=== PATIENT | female | born 1965 | race American Indian/Alaskan Native ===

== ENCOUNTER 2017-03-16 19:13 | Emergency (ER) | payer SELFPAY ==
[2017-03-16 19:47] VITALS: BP 129/85
[2017-03-16 20:10] LABS: Hematocrit 40.7 % (30.3-42.9); Hemoglobin 13.1 gm/dl (10.1-14.3); Mean Corpuscular HGB Conc 32 % (30-34); Mean Corpuscular Hemoglobin 27 pg (28-32); Mean Corpuscular Volume 83 fl (79-97); Platelet Count 265 K/mm3 (140-440); Red Blood Count 4.89 M/mm3 (3.65-5.03); White Blood Count 7.5 K/mm3 (4.5-11.0)
[2017-03-16 20:27] LABS: Anion Gap 17 mmol/L; BUN/Creatinine Ratio 26.66; Blood Urea Nitrogen 16 mg/dL (7-17); Calcium 9.1 mg/dL (8.4-10.2); Carbon Dioxide 26 mmol/L (22-30); Chloride 101.8 mmol/L (98-107); Glucose 103 mg/dL (65-100); Potassium 4.3 mmol/L (3.6-5.0); Sodium 140 mmol/L (137-145)
--- NOTE | 2017-03-16 20:28 | Cat Scan Report ---
FINAL REPORT PROCEDURE: CT HEAD/BRAIN WO CON TECHNIQUE: Computerized tomography of the head was performed without contrast material. HISTORY: Headache COMPARISON: No prior studies are available for comparison. FINDINGS: Skull and scalp: Normal. Paranasal sinuses: Normal. Ventricles and subarachnoid spaces: Normal. Cerebrum: No evidence of hemorrhage, acute infarction or mass . Cerebellum and brainstem: No evidence of hemorrhage, acute infarction or mass. Vasculature: Normal. Comments: None. IMPRESSION: Normal Examination
--- NOTE | 2017-03-21 16:50 | ED Elopement Review ---
ED Pt Elopement review - Results review Lab results: Laboratory Tests 03/16/17 03/16/17 19:58 19:58 WBC 7.5 RBC 4.89 Hgb 13.1 Hct 40.7 MCV 83 MCH 27 L MCHC 32 RDW 15.0 Plt Count 265 Sodium 140 Potassium 4.3 Chloride 101.8 Carbon Dioxide 26 Anion Gap 17 BUN 16 Creatinine 0.6 L Estimated GFR > 60 BUN/Creatinine Ratio 26.66 Glucose 103 H Calcium 9.1 - Call Back decision Pt Call Back Decision: No action required
== END 2017-03-16 22:07 | disposition left against medical advice (07) ==
LOC: ED 19:13
DX: R51 Headache (principal); Z53.21 Procedure and treatment not carried out due to patient leaving prior to being seen by health care provider
CPT/HCPCS: 36415; 70450; 80048; 85027

== ENCOUNTER 2018-11-12 14:06 | Emergency (ER) | payer MEDICARE, OTHER ==
[2018-11-12 14:19] VITALS: BP 160/95
--- NOTE | 2018-11-12 15:46 | Emergency Department Report ---
HPI - General Chief Complaint: Skin Rash Time Seen by Provider: 11/12/18 15:25 - HPI HPI: 52-year-old female presents to the emergency department with a generalized rash that has been going on for the past month. The patient has a history of MRSA in the past and thinks that this is the culprit again. She forms multiple small individual papules that are itchy. She uses a Hibiclens to "dry them out." She denies any fever, nausea, vomiting. The rash is "everywhere." She says that some of the lesions will form, go away, and then p opped up somewhere else. She denies them being on the palms or soles or inside of the mouth or any mucosa. She does not have a primary care physician or external grinder. She has a history of Sjogren's disease, lupus and eczema. She's been using some moisturizer cream for her symptoms without any relief. ED Past Medical Hx - Past Medical History Hx Hypertension: Yes Hx Congestive Heart Failure: No Hx Diabetes: Yes ("DIET CONTROLLED") Hx Asthma: No Hx COPD: No Additional medical history: MRSA. SJOGRENS. ECZEMA. LUPUS - Surgical History Additional Surgical History: TonsilLectomy. TUBAL LIGATION - Social History Smoking Status: Never Smoker Substance Use Type: Alcohol - Medications Home Medications: Home Medications Medication Instructions Recorded Confirmed Last Taken Type RX: Mupirocin [Bactroban 2% CREAM] 1 applic TP TID #1 tube 07/22/14 Unknown Rx RX: oxyCODONE /ACETAMINOPHEN 1 tab PO Q6H PRN #20 tablet 07/22/14 Unknown Rx [Percocet 5/325 mg] RX: Baclofen [Lioresal] 10 mg PO TID #15 tab 09/03/18 Unknown Rx RX: Ibuprofen [Motrin 800 MG tab] 800 mg PO Q8HR #15 tablet 09/03/18 Unknown Rx RX: Sulfamethoxazole/Trimethoprim 1 each PO BID #20 tablet 11/12/18 Unknown Rx [Bactrim DS TAB] ED Review of Systems ROS: Stated complaint: POSSIBLE OUTBREAK Other details as noted in HPI Comment: All other systems reviewed and negative Constitutional: denies: chills, fever Eyes: denies: eye pain, vision change ENT: denies: ear pain, throat pain Respiratory: denies: cough, shortness of breath Cardiovascular: denies: chest pain, palpitations Gastrointestinal: denies: abdominal pain, vomiting Genitourinary: denies: dysuria, discharge Musculoskeletal: denies: back pain, arthralgia Skin: rash, lesions, pruritus Neurological: denies: headache, weakness Physical Exam - Physical Exam Vital Signs: Vital Signs 11/12/18 14:17 Temperature 98.4 F Pulse Rate 84 Respiratory 18 Rate Blood Pressure 160/95 O2 Sat by Pulse 96 Oximetry Physical Exam: GENERAL: The patient is well-developed well-nourished. HEENT: Normocephalic. Atraumatic. Patient has moist mucous membranes. EYES: Extraocular motions are intact. NECK: Supple. Trachea is midline. CHEST/LUNGS: Clear to auscultation. There is no respiratory distress noted. HEART/CARDIOVASCULAR: Regular. There is no tachycardia. There is no obvious murmur. ABDOMEN: Abdomen is soft, nontender. Patient has normal bowel sounds. There is no abdominal distention. SKIN: Patient has multiple papules with some of them being excoriated down to almost an ulcer and this is seen to the generalized body including the face. There is no current bleeding, weeping or drainage. A few of them look more consistent with pustules. No surrounding erythema. NEURO: The patient is awake, alert, and oriented. The patient is cooperative. The patient has no focal neurologic deficits. The patient has normal speech. MUSCULOSKELETAL: There is no tenderness or deformity. There is no limitation range of motion. There is no evidence of acute injury. ED Course Vital Signs 11/12/18 14:17 Temperature 98.4 F Pulse Rate 84 Respiratory 18 Rate Blood Pressure 160/95 O2 Sat by Pulse 96 Oximetry ED Medical Decision Making - Lab Data Result diagrams: 11/12/18 16:07 11/12/18 16:07 - Medical Decision Making This patient presents to the emergency department with a one-month history of a rash and concern for MRSA, as she has had it before. Vital signs stable contin ue being afebrile. Labs were obtained that did not show any leukocytosis, significant electrolyte abnormalities or any renal insufficiency. There are no rashes or lesions seen on the palms, soles or in the oral mucosa. It does not appear consistent with any specific viral exanthem. The patient has been placed on antibiotics and has been given a referral for 2 different dermatologists. She will return to the ER with any worsening of her symptoms or any acute distress. - Differential Diagnosis dermatitis, eczema, viral exanthem Critical Care Time: No Critical care attestation.: If time is entered above; I have spent that time in minutes in the direct care of this critically ill patient, excluding procedure time. ED Disposition Clinical Impression: Rash and nonspecific skin eruption, Dermatitis Disposition: TO HOME OR SELFCARE Is pt being admited?: No Condition: Stable Instructions: Acute Rash (ED) Additional Instructions: Please follow up with a external grinder. I am giving you a referral for 2 different dermatologists. It is also recommended to follow up with a primary care physician. Take the antibiotics as prescribed. Return to the emergency Department with any worsening of your symptoms or any acute distress. Prescriptions: RX: Sulfamethoxazole/Trimethoprim [Bactrim DS TAB] 1 each PO BID #20 tablet Referrals: IVÁN FLYNN MD [Staff Physician] - 3-5 Days Fercho Villagran [Other] - 3-5 Days Forms: Work/School Release Form(ED) Time of Disposition: 17:14
[2018-11-12] MEDS ORDERED: BACTRIM DS PO ONE (16:09)
[2018-11-12 16:31] LABS: Basophils # (Auto) 0.1 K/mm3 (0.0-0.1); Basophils % (Auto) 1.1 % (0.0-1.8); Eosinophils # (Auto) 0.5 K/mm3 (0.0-0.4); Eosinophils % (Auto) 6.6 % (0.0-4.3); Hematocrit 43.3 % (30.3-42.9); Hemoglobin 14.1 gm/dl (10.1-14.3); Lymphocytes # (Auto) 1.6 K/mm3 (1.2-5.4); Lymphocytes % (Auto) 23.2 % (13.4-35.0); Mean Corpuscular HGB Conc 33 % (30-34); Mean Corpuscular Volume 83 fl (79-97); Monocytes # (Auto) 0.5 K/mm3 (0.0-0.8); Monocytes % (Auto) 7.9 % (0.0-7.3); Platelet Count 312 K/mm3 (140-440); Red Blood Count 5.23 M/mm3 (3.65-5.03); Red Cell Distribution Width 14.7 % (13.2-15.2)
[2018-11-12 16:44] LABS: BUN/Creatinine Ratio 11; Blood Urea Nitrogen 8 mg/dL (7-17); Calcium 9.1 mg/dL (8.4-10.2); Hemolysis Index 16
== END 2018-11-12 17:19 | disposition home or self-care (01) ==
LOC: ED 14:06
DX: L30.9 Dermatitis, unspecified (principal); I10 Essential (primary) hypertension; E11.9 Type 2 diabetes mellitus without complications; M32.9 Systemic lupus erythematosus, unspecified; Z98.51 Tubal ligation status; Z88.8 Allergy status to other drugs, medicaments and biological substances; Z90.89 Acquired absence of other organs
CPT/HCPCS: 36415; 80048; 85025; 99283

== ENCOUNTER 2019-09-14 05:33 | Emergency (ER) | payer OTHER ==
--- NOTE | 2019-09-14 07:49 | XRay Report ---
CHEST PA AND LATERAL VIEWS INDICATION: cough. COMPARISON: 10/01/2014 FINDINGS: Support devices: None Heart: Normal Lungs/Pleura: No acute pulmonary or pleural findings. IMPRESSION: 1. No significant abnormality. Signer Name: Giovani Ridley MD Signed: 09/14/2019 7:44 AM Workstation Name: [id number]
--- NOTE | 2019-09-14 11:14 | Emergency Department Report ---
Minor Respiratory - HPI Chief Complaint: Upper Respiratory Infection Stated Complaint: TJ Time Seen by Provider: 09/14/19 10:26 Duration: 1 week Pain Location: Chest Severity: moderate Minor Respiratory: Yes Rhinorrhea, Yes Able to Tolerate Fluids, Yes Cough, Yes Sick Contacts, Yes Chest Pain, No Sore Throat, No Ear Pain, No Hemoptysis, No Shortness of Breath, No Fever Other History: This is a 53-year-old -[place] female that presents to the emergency room with chills, headache, and chest discomfort with cough for 1 week. Patient states she is taking everything [id number] with minimal improvement of symptoms. Reports fever resolved but continued to feel ill. Denies shortness of breath, palpitations, weakness, nausea, vomiting, myalgia, or diarrhea ED Review of Systems ROS: Stated complaint: TJ Other details as noted in HPI Constitutional: denies: chills, fever ENT: congestion. denies: ear pain, throat pain Respiratory: cough. denies: shortness of breath, wheezing Cardiovascular: denies: chest pain, palpitations Gastrointestinal: denies: abdominal pain, nausea, diarrhea Genitourinary: denies: urgency, dysuria, discharge Musculoskeletal: denies: back pain, joint swelling, arthralgia Skin: denies: rash, lesions Neurological: denies: headache, weakness, paresthesias Psychiatric: denies: anxiety, depression ED Past Medical Hx - Past Medical History Previous Medical History?: Yes Hx Hypertension: Yes Hx Congestive Heart Failure: No Hx Diabetes: Yes ("DIET CONTROLLED") Hx Asthma: No Hx COPD: No Additional medical history: MRSA. SJOGRENS. ECZEMA. LUPUS - Surgical History Past Surgical History?: Yes Additional Surgical History: TonsilLectomy. TUBAL LIGATION - Social History Smoking Status: Never Smoker Substance Use Type: None - Medications Home Medications: Home Medications Medication Instructions Recorded Confirmed Last Taken Type Mupirocin [Bactroban 2% CREAM] 1 applic TP TID #1 tube 07/22/14 Unknown Rx oxyCODONE /ACETAMINOPHEN [Percocet 1 tab PO Q6H PRN #20 tablet 07/22/14 Unknown Rx 5/325 mg] Baclofen [Lioresal] 10 mg PO TID #15 tab 09/03/18 Unknown Rx Ibuprofen [Motrin 800 MG tab] 800 mg PO Q8HR #15 tablet 09/03/18 Unknown Rx Sulfamethoxazole/Trimethoprim 1 each PO BID #20 tablet 11/12/18 Unknown Rx [Bactrim DS TAB] ALBUTEROL Inhaler (OR & NICU) 2 puff IH QID PRN #8.5 gram 09/14/19 Unknown Rx [ProAir HFA Inhaler] Benzonatate [Tessalon Perles] 100 mg PO Q8HR PRN #30 capsule 09/14/19 Unknown Rx Minor Respiratory Exam - Exam General: Vital signs noted. No distress. Alert and acting appropriately. HEENT: Yes Moist Mucous Membranes, Yes Rhinorrhea (turbinates congested with clear discharge), No Pharyngeal Erythema, No Pharyngeal Exudates, No Conjuctival Injection, No Frontal Tenderness, No Maxillary Tenderness Ear: Neither TM Bulge, Neither TM Erythema, Neither EAC Pain, Neither EAC Discharge Neck: Yes Supple, No Adenopathy Lungs: Yes Good Air Exchange, No Wheezes, No Ronchi, No Stridor, No Cough, No Labored Respirations, No Retractions, No Use of Accessory Muscles, No Other Abnormal Lung Sounds Heart: Yes Regular, No Murmur Abdomen: Yes Normal Bowel Sounds, No Tenderness, No Peritoneal Signs Skin: No Rash, No Edema Neurologic: Alert and oriented, no deficits. Musculoskeletal: Unremarkable. ED Course Vital Signs 09/14/19 05:36 Temperature 98.8 F Pulse Rate 70 Respiratory 18 Rate Blood Pressure 137/91 O2 Sat by Pulse 97 Oximetry ED Medical Decision Making - Radiology Data Radiology results: report reviewed CHEST PA AND LATERAL VIEWS INDICATION: cough. COMPARISON: 10/01/2014 FINDINGS: Support devices: None Heart: Normal Lungs/Pleura: No acute pulmonary or pleural findings. IMPRESSION: 1. No significant abnormality. - Medical Decision Making 53 y.o. female that presents with URI symptoms. Patient examined by me and stable. No distress noted. Vitals normal. Chest xray has been obtained and dictated by radiologist with no acute cardiopulmonary findings. Patient notifie d of x-ray results with no questions. Bronchitis. Start benzonatate and albuterol inhaler. Discharged home stable. Encouraged to do supportive care for URI. Follow up with Primary Care Provider in 2-3 days. Critical care attestation.: If time is entered above; I have spent that time in minutes in the direct care of this critically ill patient, excluding procedure time. ED Disposition Clinical Impression: Bronchitis, Cough in adult Disposition: DC-01 TO HOME OR SELFCARE Is pt being admited?: No Condition: Stable Instructions: Acute Bronchitis (ED) Additional Instructions: Increase fluid intake and rest. Wash hands frequently. Continue taking Tylenol or ibuprofen to control fever. F/U with Primary Care Provider. Return to ER if fever, SOB, or difficulty breathing after 48 hours of supportive care. Prescriptions: ALBUTEROL Inhaler (OR & NICU) [ProAir HFA Inhaler] 2 puff IH QID PRN #8.5 gram PRN Reason: Shortness Of Breath Benzonatate [Tessalon Perles] 100 mg PO Q8HR PRN #30 capsule PRN Reason: Cough Referrals: [facility] [Outside] - 3-5 Days [facility] [Outside] - 3-5 Days [facility] [Outside] - 3-5 Days Forms: Work/School Release Form(ED) Time of Disposition: 11:14
[2019-09-14 11:24] VITALS: BP 130/90
== END 2019-09-14 11:23 | disposition home or self-care (01) ==
LOC: ED 05:33
DX: J40 Bronchitis, not specified as acute or chronic (principal); I10 Essential (primary) hypertension; E11.9 Type 2 diabetes mellitus without complications; Z90.89 Acquired absence of other organs; Z98.51 Tubal ligation status; Z79.899 Other long term (current) drug therapy; Z88.8 Allergy status to other drugs, medicaments and biological substances
CPT/HCPCS: 71046